=== PATIENT | female | born 2000 | race Caucasian/White ===

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

== ENCOUNTER 2019-03-26 16:40 | Outpatient (CLI) | payer MEDICAID ==
[2019-03-26 18:22] LABS: APPEARANCE,URINE CLEAR; BILIRUBIN,URINE NEGATIVE (NEGATIVE); COLOR,URINE YELLOW; GLUCOSE, URINE NEGATIVE (NEGATIVE); KETONES,URINE NEGATIVE (NEGATIVE); LEUKOCYTE ESTERASE,URINE NEGATIVE (NEGATIVE); NITRITE,URINE NEGATIVE (NEGATIVE); PROTEIN,URINE NEGATIVE (NEGATIVE); URINE SPECIFIC GRAVITY 1.011; UROBILINOGEN,URINE NEGATIVE mg/dL (<2.0)
[2019-03-26 18:37] LABS: URINE AMPHETAMINES SCREEN NEGATIVE; URINE BARBITURATES SCREEN NEGATIVE; URINE BENZODIAZEPINES SCREEN NEGATIVE; URINE COCAINE SCREEN NEGATIVE; URINE MARIJUANA (THC) SCREEN NEGATIVE; URINE METHADONE SCREEN NEGATIVE; URINE PHENCYCLIDINE SCREEN NEGATIVE
== END 2019-03-26 18:48 | disposition home or self-care (01) ==
LOC: LC 16:40
PROVIDERS: ATTEND Obstetrics & Gynecology
PROC: 4A1HXCZ Monitoring of Products of Conception, Cardiac Rate, External Approach (ICD-10-PCS; principal; 2019-03-26)
DX: O23.43 Unspecified infection of urinary tract in pregnancy, third trimester (principal); Z3A.29 29 weeks gestation of pregnancy
CPT/HCPCS: 80307; 81001; 84112

== ENCOUNTER 2019-03-29 22:08 | Outpatient (CLI) | payer MEDICAID ==
[2019-03-29 22:50] LABS: APPEARANCE,URINE CLEAR; BILIRUBIN,URINE NEGATIVE (NEGATIVE); COLOR,URINE YELLOW; GLUCOSE, URINE NEGATIVE (NEGATIVE); KETONES,URINE NEGATIVE (NEGATIVE); LEUKOCYTE ESTERASE,URINE TRACE (NEGATIVE); NITRITE,URINE NEGATIVE (NEGATIVE); PROTEIN,URINE NEGATIVE (NEGATIVE); URINE SPECIFIC GRAVITY 1.009
[2019-03-29 23:16] LABS: URINE AMPHETAMINES SCREEN NEGATIVE; URINE BARBITURATES SCREEN NEGATIVE; URINE BENZODIAZEPINES SCREEN NEGATIVE; URINE COCAINE SCREEN NEGATIVE; URINE MARIJUANA (THC) SCREEN NEGATIVE; URINE METHADONE SCREEN NEGATIVE; URINE PHENCYCLIDINE SCREEN NEGATIVE
== END 2019-03-29 23:28 | disposition home or self-care (01) ==
LOC: LC 22:08
PROVIDERS: ATTEND Obstetrics & Gynecology
PROC: 4A1HXCZ Monitoring of Products of Conception, Cardiac Rate, External Approach (ICD-10-PCS; principal; 2019-03-29)
DX: O36.8130 Decreased fetal movements, third trimester, not applicable or unspecified (principal); Z3A.29 29 weeks gestation of pregnancy
CPT/HCPCS: 80307; 81001

== ENCOUNTER 2019-04-12 19:14 | Outpatient (CLI) | payer MEDICAID ==
[2019-04-12 20:29] LABS: APPEARANCE,URINE CLEAR; BILIRUBIN,URINE NEGATIVE (NEGATIVE); COLOR,URINE STRAW; GLUCOSE, URINE NEGATIVE (NEGATIVE); KETONES,URINE NEGATIVE (NEGATIVE); LEUKOCYTE ESTERASE,URINE NEGATIVE (NEGATIVE); NITRITE,URINE NEGATIVE (NEGATIVE); PROTEIN,URINE NEGATIVE (NEGATIVE); URINE SPECIFIC GRAVITY 1.004; UROBILINOGEN,URINE NEGATIVE mg/dL (<2.0)
[2019-04-12 20:46] LABS: URINE AMPHETAMINES SCREEN NEGATIVE; URINE BARBITURATES SCREEN NEGATIVE; URINE BENZODIAZEPINES SCREEN NEGATIVE; URINE COCAINE SCREEN NEGATIVE; URINE MARIJUANA (THC) SCREEN NEGATIVE; URINE METHADONE SCREEN NEGATIVE; URINE PHENCYCLIDINE SCREEN NEGATIVE
== END 2019-04-12 21:03 | disposition home or self-care (01) ==
LOC: LC 19:14
PROVIDERS: ATTEND Obstetrics & Gynecology Gynecology
PROC: 4A1HXCZ Monitoring of Products of Conception, Cardiac Rate, External Approach (ICD-10-PCS; principal; 2019-04-12)
DX: O47.03 False labor before 37 completed weeks of gestation, third trimester (principal); O46.93 Antepartum hemorrhage, unspecified, third trimester; Z3A.31 31 weeks gestation of pregnancy
CPT/HCPCS: 80307; 81001

== ENCOUNTER 2019-04-29 19:27 | Outpatient (CLI) | payer MEDICAID ==
[2019-04-29 20:07] LABS: BACTERIA (WET MOUNT) 4+ BACTERIA SEEN; EPITHELIALS (WET MOUNT) 4+ EPITHELIALS SEEN; RBCS (WET MOUNT) 1+ RBCS SEEN; T.VAGINALIS (WET MOUNT) NO TRICHOMONAS SEEN; WBCS (WET MOUNT) 1+ WBCS SEEN; YEAST (WET MOUNT) YEAST SEEN
[2019-04-29 20:18] LABS: APPEARANCE,URINE CLEAR; BILIRUBIN,URINE NEGATIVE (NEGATIVE); COLOR,URINE STRAW; GLUCOSE, URINE NEGATIVE (NEGATIVE); KETONES,URINE NEGATIVE (NEGATIVE); LEUKOCYTE ESTERASE,URINE NEGATIVE (NEGATIVE); NITRITE,URINE NEGATIVE (NEGATIVE); PROTEIN,URINE NEGATIVE (NEGATIVE); URINE SPECIFIC GRAVITY 1.002; UROBILINOGEN,URINE NEGATIVE mg/dL (<2.0)
[2019-04-29 20:29] LABS: URINE AMPHETAMINES SCREEN NEGATIVE; URINE BARBITURATES SCREEN NEGATIVE; URINE BENZODIAZEPINES SCREEN NEGATIVE; URINE COCAINE SCREEN NEGATIVE; URINE MARIJUANA (THC) SCREEN NEGATIVE; URINE METHADONE SCREEN NEGATIVE; URINE PHENCYCLIDINE SCREEN NEGATIVE
--- NOTE | 2019-04-29 20:39 | Non Stress Test Report ---
Non Stress Test Datetime Report Generated by CPN: 04/29/2019 20:38 DEMOGRAPHIC EGA NST: 33.6 INDICATION Indication for Study (NST) Other: labor check URINE RESULTS Urine Protein, NST: Negative Urine Ketones - NST: Negative Urine Glucose - NST: Negative Urine Blood - NST: Negative MONITORING Monitor Explained: Monitor Explained; Test Explained; Patient Verbalized Understanding Time on Monitor: 04/29/2019 20:11 Time off Monitor: 04/29/2019 20:38 NST Duration: 27 NST INTERVENTIONS NST Interventions: PO Hydration; Reposition Patient Physician Notified NST: Dr Bartholomew BABY A: [id number] BABY A Movement : Present Contraction Frequency : irr FHR Baseline : 145 Accelerations : 15X15 Decelerations : None Variability : Moderate 6-25bpm NST Review: Meets Criteria for Reactive NST NST Review and Verified By : adore VIZCAINO Results: Reactive NST REPORT Report Trigger: Send Report
[2019-04-29] MEDS ORDERED: FLUCONAZOLE 100 MG TABLET ONE (20:55)
[2019-04-29] MEDS ORDERED: FLUCONAZOLE 100 MG TABLET PO ONE (21:30)
[2019-04-29 22:46] LABS: CHLAM PCR NOT DETECTED (NOT DETECT)
== END 2019-04-29 21:31 | disposition home or self-care (01) ==
LOC: LC 19:27
PROVIDERS: ATTEND Student in an Organized Health Care Education/Training Program
PROC: 4A1HXCZ Monitoring of Products of Conception, Cardiac Rate, External Approach (ICD-10-PCS; principal; 2019-04-29)
DX: O98.813 Other maternal infectious and parasitic diseases complicating pregnancy, third trimester (principal); B37.9 Candidiasis, unspecified; Z3A.33 33 weeks gestation of pregnancy
CPT/HCPCS: 59025; 87210; 81001; 80307; 87491; 87591; J3490

== ENCOUNTER 2019-05-02 10:15 | Outpatient (CLI) | payer MEDICAID ==
[2019-05-02 12:36] LABS: APPEARANCE,URINE SLIGHTLY-CLOUDY; BILIRUBIN,URINE NEGATIVE (NEGATIVE); COLOR,URINE YELLOW; GLUCOSE, URINE NEGATIVE (NEGATIVE); KETONES,URINE NEGATIVE (NEGATIVE); LEUKOCYTE ESTERASE,URINE TRACE (NEGATIVE); NITRITE,URINE NEGATIVE (NEGATIVE); PROTEIN,URINE NEGATIVE (NEGATIVE); URINE SPECIFIC GRAVITY 1.015; UROBILINOGEN,URINE NEGATIVE mg/dL (<2.0)
--- NOTE | 2019-05-02 12:54 | Non Stress Test Report ---
Non Stress Test Datetime Report Generated by CPN: 05/02/2019 12:54 DEMOGRAPHIC EGA NST: 34.2 INDICATION Indication for Study (NST) Other: vaginal bleeding MONITORING Monitor Explained: Monitor Explained; Test Explained; Patient Verbalized Understanding Time on Monitor: 05/02/2019 10:20 Time off Monitor: 05/02/2019 12:53 NST Duration: 153 NST INTERVENTIONS NST Interventions: PO Hydration Physician Notified NST: Frandy Mccormack CN on unit, reviewed fht BABY A: [id number] BABY A Movement : Present Contraction Frequency : 0 FHR Baseline : 135 Accelerations : 15X15 Decelerations : None Variability : Moderate 6-25bpm NST Review: Meets Criteria for Reactive NST NST Review and Verified By : Jer Gonzalez RN NST Results: Reactive NST REPORT Report Trigger: Send Report
[2019-05-02 12:58] LABS: URINE AMPHETAMINES SCREEN NEGATIVE; URINE BARBITURATES SCREEN NEGATIVE; URINE BENZODIAZEPINES SCREEN NEGATIVE; URINE COCAINE SCREEN NEGATIVE; URINE MARIJUANA (THC) SCREEN NEGATIVE; URINE METHADONE SCREEN NEGATIVE; URINE PHENCYCLIDINE SCREEN NEGATIVE
== END 2019-05-02 12:56 | disposition home or self-care (01) ==
LOC: LC 10:15
PROVIDERS: ATTEND Obstetrics & Gynecology
PROC: 4A1HXCZ Monitoring of Products of Conception, Cardiac Rate, External Approach (ICD-10-PCS; principal; 2019-05-02)
DX: O46.93 Antepartum hemorrhage, unspecified, third trimester (principal); Z3A.34 34 weeks gestation of pregnancy
CPT/HCPCS: 59025; 80307; 81001; 87086

== ENCOUNTER 2019-05-30 19:56 | Outpatient (CLI) | payer MEDICAID ==
[2019-05-30 20:44] LABS: APPEARANCE,URINE SLIGHTLY-CLOUDY; BILIRUBIN,URINE NEGATIVE (NEGATIVE); COLOR,URINE YELLOW; GLUCOSE, URINE NEGATIVE (NEGATIVE); KETONES,URINE NEGATIVE (NEGATIVE); LEUKOCYTE ESTERASE,URINE SMALL (NEGATIVE); NITRITE,URINE NEGATIVE (NEGATIVE); PROTEIN,URINE NEGATIVE (NEGATIVE); URINE SPECIFIC GRAVITY 1.013; UROBILINOGEN,URINE NEGATIVE mg/dL (<2.0)
--- NOTE | 2019-05-30 20:57 | Non Stress Test Report ---
Non Stress Test Datetime Report Generated by CPN: 05/30/2019 20:56 DEMOGRAPHIC EGA NST: 38.2 INDICATION Indication for Study (NST) Other: LC- contractions URINE RESULTS Urine Glucose - NST: Negative MONITORING Monitor Explained: Monitor Explained; Test Explained; Patient Verbalized Understanding Time on Monitor: 05/30/2019 20:09 Time off Monitor: 05/30/2019 20:52 NST Duration: 43 NST INTERVENTIONS NST Interventions: PO Hydration; Reposition Patient Physician Notified NST: Dr. Prado BABY A: [id number] BABY A Movement : Present Contraction Frequency : 2-3 Accelerations : 15X15 Decelerations : None Variability : Moderate 6-25bpm NST Review: Meets Criteria for Reactive NST NST Review and Verified By : , RN NST REPORT Report Trigger: Send Report
[2019-05-30 21:03] LABS: URINE AMPHETAMINES SCREEN NEGATIVE; URINE BARBITURATES SCREEN NEGATIVE; URINE BENZODIAZEPINES SCREEN NEGATIVE; URINE COCAINE SCREEN NEGATIVE; URINE MARIJUANA (THC) SCREEN NEGATIVE; URINE METHADONE SCREEN NEGATIVE; URINE PHENCYCLIDINE SCREEN NEGATIVE
== END 2019-05-30 20:59 | disposition home or self-care (01) ==
LOC: LC 19:56
PROVIDERS: ATTEND Obstetrics & Gynecology
PROC: 4A1HXCZ Monitoring of Products of Conception, Cardiac Rate, External Approach (ICD-10-PCS; principal; 2019-05-30)
DX: O47.1 False labor at or after 37 completed weeks of gestation (principal); Z3A.38 38 weeks gestation of pregnancy
CPT/HCPCS: 80307; 81005

== ENCOUNTER 2019-06-06 16:59 | Outpatient (CLI) | payer MEDICAID ==
[2019-06-06] MEDS ORDERED: HYDROXYZINE PAMOATE 50 MG CAPSULE PO ONE (17:53)
[2019-06-06 17:54] LABS: APPEARANCE,URINE CLEAR; BILIRUBIN,URINE NEGATIVE (NEGATIVE); COLOR,URINE STRAW; GLUCOSE, URINE NEGATIVE (NEGATIVE); KETONES,URINE NEGATIVE (NEGATIVE); LEUKOCYTE ESTERASE,URINE NEGATIVE (NEGATIVE); NITRITE,URINE NEGATIVE (NEGATIVE); PROTEIN,URINE NEGATIVE (NEGATIVE); URINE SPECIFIC GRAVITY 1.002; UROBILINOGEN,URINE NEGATIVE mg/dL (<2.0)
[2019-06-06] MEDS ORDERED: HYDROXYZINE PAMOATE 50 MG CAPSULE ONE (18:05)
[2019-06-06 18:16] LABS: URINE AMPHETAMINES SCREEN NEGATIVE; URINE BARBITURATES SCREEN NEGATIVE; URINE BENZODIAZEPINES SCREEN NEGATIVE; URINE COCAINE SCREEN NEGATIVE; URINE MARIJUANA (THC) SCREEN NEGATIVE; URINE METHADONE SCREEN NEGATIVE; URINE PHENCYCLIDINE SCREEN NEGATIVE
--- NOTE | 2019-06-06 18:52 | Non Stress Test Report ---
Non Stress Test Datetime Report Generated by CPN: 06/06/2019 18:52 DEMOGRAPHIC EGA NST: 39.2 INDICATION Indication for Study (NST) Other: LC- ctxs MONITORING Monitor Explained: Monitor Explained; Test Explained; Patient Verbalized Understanding Time on Monitor: 06/06/2019 17:13 Time off Monitor: 06/06/2019 18:09 NST Duration: 56 NST INTERVENTIONS NST Interventions: PO Hydration Physician Notified NST: Dr Wally BABY A: [id number] BABY A Movement : Present Contraction Frequency : 2-4 FHR Baseline : 140 Accelerations : 15X15 Decelerations : None Variability : Moderate 6-25bpm NST Review: Meets Criteria for Reactive NST NST Review and Verified By : Joyce Lane RN NST Results: Reactive NST REPORT Report Trigger: Send Report
== END 2019-06-06 19:43 | disposition home or self-care (01) ==
LOC: LC 16:59
PROVIDERS: ATTEND Obstetrics & Gynecology
PROC: 4A1HXCZ Monitoring of Products of Conception, Cardiac Rate, External Approach (ICD-10-PCS; principal; 2019-06-06)
DX: O36.8130 Decreased fetal movements, third trimester, not applicable or unspecified (principal); O47.1 False labor at or after 37 completed weeks of gestation; Z3A.39 39 weeks gestation of pregnancy
CPT/HCPCS: 59025; 81005; 80307; J3490

== ENCOUNTER 2019-06-12 10:57 | Outpatient (CLI) | payer MEDICAID ==
[2019-06-12 11:24] LABS: APPEARANCE,URINE CLOUDY; BILIRUBIN,URINE NEGATIVE (NEGATIVE); COLOR,URINE YELLOW; GLUCOSE, URINE NEGATIVE (NEGATIVE); KETONES,URINE NEGATIVE (NEGATIVE); LEUKOCYTE ESTERASE,URINE LARGE (NEGATIVE); NITRITE,URINE NEGATIVE (NEGATIVE); PROTEIN,URINE 30 mg/dL (NEGATIVE); URINE SPECIFIC GRAVITY 1.016; UROBILINOGEN,URINE NEGATIVE mg/dL (<2.0)
--- NOTE | 2019-06-12 11:53 | Non Stress Test Report ---
Non Stress Test Datetime Report Generated by CPN: 06/12/2019 11:52 DEMOGRAPHIC EGA NST: 40.1 INDICATION Indication for Study (NST) Other: false labor VITAL SIGNS Temperature - NST: 98.6 RESP - NST: 16 NBPSYS NST: 100 NBPDIA NST: 56 MONITORING Monitor Explained: Monitor Explained; Test Explained Time on Monitor: 06/12/2019 11:13 Time off Monitor: 06/12/2019 11:49 NST Duration: 36 NST INTERVENTIONS NST Interventions: PO Hydration; Reposition Patient Physician Notified NST: A. Escobar CNM on unit reviewed fht BABY A: [id number] BABY A Movement : Present Contraction Frequency : x2 FHR Baseline : 145 Accelerations : 15X15 Decelerations : None Variability : Moderate 6-25bpm NST Review: Meets Criteria for Reactive NST NST Review and Verified By : MMobley NST Results: Reactive NST REPORT Report Trigger: Send Report
[2019-06-12 11:55] LABS: URINE AMPHETAMINES SCREEN NEGATIVE; URINE BARBITURATES SCREEN NEGATIVE; URINE BENZODIAZEPINES SCREEN NEGATIVE; URINE COCAINE SCREEN NEGATIVE; URINE MARIJUANA (THC) SCREEN NEGATIVE; URINE METHADONE SCREEN NEGATIVE; URINE PHENCYCLIDINE SCREEN NEGATIVE
[2019-06-12] MEDS ORDERED: RINGERS SOLUTION,LACTATED 1,000 ML IV PRN (18:59)
== END 2019-06-12 12:05 | disposition home or self-care (01) ==
LOC: LC 10:57
PROVIDERS: ATTEND Obstetrics & Gynecology
PROC: 4A1HXCZ Monitoring of Products of Conception, Cardiac Rate, External Approach (ICD-10-PCS; principal; 2019-06-12)
DX: O47.1 False labor at or after 37 completed weeks of gestation (principal); Z3A.40 40 weeks gestation of pregnancy
CPT/HCPCS: 59025; 87086; 81005; 87088; 80307; 84112; Q0114

== ENCOUNTER 2019-06-12 18:14 | Inpatient (IN) | payer MEDICAID ==
[2019-06-12] MEDS ORDERED: ACETAMINOPHEN 325 MG TABLET PO PRN (18:37)
[2019-06-12] MEDS ORDERED: DINOPROSTONE 10 MG VAGINAL INSERT.SR PV ONE (18:37)
[2019-06-12] MEDS ORDERED: RINGERS SOLUTION,LACTATED 300 ML IV ONE (18:37)
[2019-06-12] MEDS ORDERED: ZOLPIDEM TARTRATE 5 MG TABLET PO PRN (18:37)
[2019-06-12] MEDS ORDERED: MAG HYDROX/AL HYDROX/SIMETH SUSP 30 ML UDCUP PO PRN (18:37)
[2019-06-12 19:02] LABS: ABSOLUTE MONOCYTES (AUTO) 0.6 10^3/uL (0.1-1.4); ABSOLUTE NEUT (AUTO) 6.5 10^3/uL (1.7-8.2); BASOPHILS % (AUTO) 0.2 % (0-2); EOSINOPHILS % (AUTO) 0.5 % (0-6); HEMATOCRIT 35.5 % (36.0-47.0); HEMOGLOBIN 11.9 g/dL (12.0-15.5); LYMPHOCYTES % (AUTO) 21.6 % (13-45); MEAN CORPUSCULAR HEMOGLOBIN 28.7 pg (27.0-33.4); MEAN CORPUSCULAR HGB CONC 33.6 g/dL (32.0-36.0); MEAN CORPUSCULAR VOLUME 85 fl (80-97); MONOCYTES % (AUTO) 6.9 % (3-13); PLATELET COUNT 194 10^3/uL (150-450); RED BLOOD COUNT 4.15 10^6/uL (3.72-5.28); RED CELL DISTRIBUTION WIDTH 13.7 % (11.5-14.0); SEGMENTED NEUTROPHILS % (AUTO) 70.8 % (42-78); TOTAL CELLS COUNTED % (AUTO) 100 %; WHITE BLOOD COUNT 9.2 10^3/uL (4.0-10.5)
[2019-06-12] MEDS ORDERED: LIDOCAINE 1% INJ-PF (10 MG/ML) 30 ML SDV ONE (19:42)
[2019-06-12] MEDS ORDERED: DINOPROSTONE 10 MG VAGINAL INSERT.SR ONE (19:42)
[2019-06-12] MEDS ORDERED: OXYTOCIN/NORMAL SALINE 20 UNIT/1,000 ML RTUINJ ONE (19:42)
[2019-06-12] MEDS ORDERED: MISOPROSTOL 0.2 MG TABLET ONE (19:42)
[2019-06-12] MEDS ORDERED: OXYTOCIN 10 UNIT/ML VIAL ONE (19:42)
[2019-06-12 20:07] LABS: APPEARANCE,URINE SLIGHTLY-CLOUDY; BILIRUBIN,URINE NEGATIVE (NEGATIVE); COLOR,URINE YELLOW; GLUCOSE, URINE NEGATIVE (NEGATIVE); KETONES,URINE NEGATIVE (NEGATIVE); LEUKOCYTE ESTERASE,URINE TRACE (NEGATIVE); NITRITE,URINE NEGATIVE (NEGATIVE); PROTEIN,URINE NEGATIVE (NEGATIVE); URINE SPECIFIC GRAVITY 1.015; UROBILINOGEN,URINE NEGATIVE mg/dL (<2.0)
[2019-06-12 20:21] LABS: URINE AMPHETAMINES SCREEN NEGATIVE; URINE BARBITURATES SCREEN NEGATIVE; URINE BENZODIAZEPINES SCREEN NEGATIVE; URINE COCAINE SCREEN NEGATIVE; URINE MARIJUANA (THC) SCREEN NEGATIVE; URINE METHADONE SCREEN NEGATIVE; URINE PHENCYCLIDINE SCREEN NEGATIVE
--- NOTE | 2019-06-12 22:15 | Admission Physical ---
Datetime Report Generated by CPN: 06/12/2019 22:14 CURRENT ADMISSION Chief Complaint: Scheduled Induction of Labor Indication for Induction: Post Dates Admit Impression : Postterm, Intrauterine Admit Plan: Admit to Unit; Initiate Labor Induction Protocol ALLERGIES Medication Allergies: Yes Medication Allergies: Sulfa (Sulfonamide Antibiotics)/IA (05/30/2019); prednisone (05/30/2019) Latex: No Latex Allergies Food Allergies: NKA Environmental Allergies: NKA OBSTETRICAL HISTORY EDC: 06/11/2019 00:00 : 1 Para: 0 Term: 0 : 0 SAB: 0 IAB: 0 Ectopic: 0 Livin Cesareans: 0 VBACs: 0 Multiple Births: 0 Gestational Diabetes: No Rh Sensitization: No Incompetent Cervix: No ADRIAN: No Infertility: No ART Treatment: No Uterine Anomaly: No IUGR: No Hx Previous C/S: No Macrosomia: No Hx Loss/Stillborn: No PIH: No Hx : No Placenta Previa/Abruption: No Depression/PP Depression: No PTL/PROM: No Post Hemorrhage: No Current Procedures: Ultrasound; NST Obstetrical History Comments: G1- current SEE RECORDS Alcohol: No Marijuana : No Cocaine: No Other Illicit Drugs: No Cigarettes: Never Smoker. [id number] MEDICAL HISTORY Diabetes: No Blood Transfusion: No Pulmonary Disease (Asthma, TB): No Breast Disease: No Hypertension: No Manager Story Surgery: No Heart Disease: No Hosp/Surgery: Yes Autoimmune Disorder: No Anesthetic Complications: No Kidney Disease: No Abnormal Pap Smear: No Neuro/Epilepsy: No Psychiatric Disorders: No Other Medical Diseases: No Hepatitis/Liver Disease: No Significant Family History: No Varicosities/Phlebitis: No Trauma/Violence : No Thyroid Dysfunction: No Medical History Comments: syncopal episodes- cleared by cards gallbladder surgery-2011 INFECTIOUS HISTORY Gonorrhea: No Genital Herpes: No Chlamydia: No Tuberculosis: No Syphilis: No Hepatitis: No HIV/AIDS Exposure: No Rash or Viral Illness: No HPV: No PHYSICAL EXAM General: Normal HEENT: Normal Neurologic: Normal Thyroid: Normal Heart: Normal Lungs: Normal Breast: Normal Back: Normal Abdomen: Normal Genitourinary Exam: Normal Extremities: Normal DTRs: Normal Pelvic Type: Adequate Vital Signs: Reviewed; Within Normal Limits VAGINAL EXAM Dilatation: 1 Effacement: 75 Station: -3 Contraction Comments: No regular MEMBRANES Pooling: Negative Membranes: Intact FETUS A EGA: 40.1 Monitoring: External US FHR- Baseline: 140 Variability: Moderate 6-25bpm Accelerations: 15X15 Decelerations: None FHR Category: Category I Presentation: Vertex Admit Comment: G1 at 40.1 wks EGA for IOL, scheduled, d/t post dates -Admit to LDR -NPO and IVFs -CEFM and toco -GBS negative -Cervidil at 1999 -Cervix -Routine IOL orders. -Plans epidural for pain management once in active labor PLANS FOR LABOR AND DELIVERY Labor and Delivery: None Pain Management: Epidural Feeding Preference: Breast Benefit of Breast Feed Discussed: Yes Circumcision: No INFORMED CONSENT Informed Consent Obtained: Vaginal Delivery; Section Delivery; Induction of Labor; Risks, Benefits and Alternatives Discussed Signature: with User ID: David : with User ID: David
[2019-06-12] MEDS: RINGERS SOLUTION,LACTATED 1,000 ML IV PRN (22:29)
[2019-06-13] MEDS: RINGERS SOLUTION,LACTATED 1,000 ML IV PRN ×2 (06:25→18:45)
[2019-06-13] MEDS ORDERED: OXYTOCIN/NORMAL SALINE 20 UNIT/1,000 ML RTUINJ IV PRN (10:30)
[2019-06-13] MEDS ORDERED: EPHEDRINE SULFATE INJ 50 MG/1 ML AMPULE ONE (12:49)
[2019-06-13] MEDS ORDERED: FENTANYL/BUPIVACAINE/NS/PF 300 MCG/150 ML RTUINJ EPI ONE (12:50)
[2019-06-13] MEDS ORDERED: BUPIVACAINE HCL 0.25 % INJ/PF (2.5 MG/1 ML) 30 ML VIAL ONE (12:50)
--- NOTE | 2019-06-13 14:10 | Warning Signs in Babies ---
VOD Warning Signs Datetime Report Generated by [facility]: 06/13/2019 14:10 VOD#[id number] -Warning Signs in Babies: Viewed with Parent(s)/Family (06/13/2019 14:09:Balwinder De Jesus RN)
[2019-06-13] MEDS ORDERED: INFLUENZA QUAD (6MOS+) 2019-20 VAC 0.5 ML SYR IM ONE (14:13)
[2019-06-13] MEDS ORDERED: ACETAMINOPHEN 325 MG TABLET PO ONE (19:52)
[2019-06-13] MEDS ORDERED: GENTAMICIN SULFATE INJ 80 MG/2 ML VIAL IV ONE (19:55)
[2019-06-13] MEDS ORDERED: ACETAMINOPHEN 325 MG TABLET ONE (19:58)
[2019-06-13] MEDS ORDERED: LIDOCAINE 2% INJ-PF (20 MG/ML) 10 ML AMPUL ONE (21:02)
[2019-06-13] MEDS: AMPICILLIN SODIUM 2 GM in NORMAL SALINE 100 ML IV SCH (21:12)
[2019-06-13] MEDS ORDERED: GENTAMICIN SULFATE IV ONE (22:00)
[2019-06-13] MEDS ORDERED: GENTAMICIN SULFATE INJ 80 MG/2 ML VIAL IV SCH (22:00)
[2019-06-13] MEDS ORDERED: DEXTROSE 5% IV ONE (22:00)
[2019-06-13] MEDS ORDERED: WATER IV ONE (22:00)
[2019-06-14] MEDS ORDERED: IBUPROFEN 800 MG TABLET ONE ×2 (00:18→05:45)
[2019-06-14] MEDS ORDERED: PROMETHAZINE HCL 25 MG TABLET PO PRN (00:28)
[2019-06-14] MEDS ORDERED: BENZOCAINE/MENTHOL AEROSOL SPRAY 56 ML TOP PRN (00:28)
[2019-06-14] MEDS ORDERED: ACETAMINOPHEN WITH CODEINE #3 TABLET PO PRN ×2 (00:28)
[2019-06-14] MEDS ORDERED: MAGNESIUM HYDROXIDE SUSP 30 ML UDCUP PO PRN (00:28)
[2019-06-14] MEDS ORDERED: DIPH/PERTUSS(ACELL)/TETANUS VAC/PF 0.5 ML SYR (>=10YO) IM PRN (00:28)
[2019-06-14] MEDS ORDERED: NA PHOS,M-B/NA PHOS,DI-BA (ADULT) 133 ML ENEMA PR PRN (00:28)
[2019-06-14] MEDS ORDERED: ACETAMINOPHEN 325 MG TABLET PO PRN (00:28)
[2019-06-14] MEDS ORDERED: PROMETHAZINE HCL INJ 25 MG/1 ML VIAL IV PRN (00:28)
[2019-06-14] MEDS ORDERED: DIPHENHYDRAMINE HCL 25 MG CAPSULE PO PRN (00:28)
[2019-06-14] MEDS ORDERED: MEASLES,MUMPS&RUBELLA VACC/PF 0.5 ML VIAL SUBCUT PRN (00:28)
[2019-06-14] MEDS ORDERED: PROMETHAZINE HCL 25 MG SUPP.RECT PR PRN (00:28)
[2019-06-14] MEDS ORDERED: PSEUDOEPHEDRINE HCL 30 MG TABLET PO PRN (00:28)
[2019-06-14] MEDS ORDERED: ZOLPIDEM TARTRATE 5 MG TABLET PO PRN (00:28)
[2019-06-14] MEDS ORDERED: OXYTOCIN/NORMAL SALINE 20 UNIT/1,000 ML RTUINJ IV PRN (00:28)
[2019-06-14] MEDS ORDERED: DIBUCAINE 1% OINTMENT 28 GM TP PRN (00:28)
[2019-06-14] MEDS ORDERED: GLYCERIN/WITCH HAZEL LEAF 1 EACH MED..WIPE TP PRN (00:28)
[2019-06-14] MEDS ORDERED: MISOPROSTOL 0.2 MG TABLET PR PRN (00:28)
--- NOTE | 2019-06-14 01:22 | Delivery Summary ---
Del Sum A-C Datetime Report Generated by CPN: 06/14/2019 01:22 DELIVERY PERSONNEL DELIVERY PERSONNEL: [id number] Delivery Doctor:: Elizabeth Bartholomew MD Anesthesiologist:: Lamonte Islas MD Labor and Delivery Nurse:: Misty Khoury RNfiltration plant mechanic Nurse:: Lenka Hanley RN Nursery Nurse:: Emmanuelle Henry RN MSN Ornamental Metal Fabricator Apprentice/CANE PILER: Chula Morris, PHARMACY GENERAL MANAGER MATERNAL INFORMATION Delivery Anesthesia: Epidural Medications After Delivery: Pitocin Bolus-Please Comment; Cytotec 1000mcg Per Rectum/Vagina Meds After Delivery Comment: pitocin 20units/1000ml NS bolus Estimated Blood Loss (ml): 200 Maternal Complications: Maternal Fever Provider Comments: VMI delivered in ROXANNE presenation with nuchal cord. Shoulders and body delivered without difficulty. Cord doubly clamped and cut and infant to maternal abdomen. Placenta delivered spontaneously intact. FF at U. 2nd degree laceration repaired with good hemostasis. Mother and baby stable upon provider leaving the room. LABOR SUMMARY EDC: 06/11/2019 00:00 No. Babies in Womb: 1 Attempted: No Labor Anesthesia: Epidural LABOR INFORMATION Reason for Induction: Post Dates Onset of Labor: 06/13/2019 21:43 Complete Dilatation: 06/13/2019 23:19 Cervical Ripening Agents: Cervidil Oxytocin: Induction Group B Beta Strep: Negative (Annotations: Data stored by CPN on behalf of user) Antibiotics # of Doses: 0 Steroids Given: None Reason Steroids Not Administered: Not Applicable MEMBRANES Membranes Rupture Method: Artificial Rupture of Membranes: 06/13/2019 15:28 Length of Rupture (hr): 8.25 Amniotic Fluid Color: Light Meconium Amniotic Fluid Amount: Moderate Amniotic Fluid Odor: Normal STAGES OF LABOR Stage 1 hr: 1 Stage 1 min: 36 Stage 2 hr: 0 Stage 2 min: 24 Stage 3 hr: 0 Stage 3 min: 2 Total Time in Labor hr: 2 Total Time in Labor min: 2 VAGINAL DELIVERY Episiotomy: None Laceration #1: Perineal Laceration Extension #1: Second Degree Laceration Repair: Yes Laceration Repair Note: 2nd degree repaired with good hemostasis. Sponge Count Correct: Yes Sharps Count Correct: Yes CSECTION DELIVERY Primary Indication: N/A Secondary Indication: N/A CSection Incidence: N/A Labor: N/A Elective: N/A CSection Incision: N/A BABY A INFORMATION Delivery Date/Time: 06/13/2019 23:43 Method of Delivery: Vaginal Nurse Controlled Delivery: No Born in Route : No : N/A Forceps: N/A Vacuum Extraction: N/A Shoulder Dystocia : No PRESENTATION/POSITION BABY A Presentation: Cephalic Cephalic Presentation: Vertex Vertex Position: Left Occipital Anterior Breech Presentation: N/A PLACENTA INFORMATION BABY A Placenta Delivery Time : 06/13/2019 23:45 Placenta Method of Delivery: Spontaneous Placenta Status: Delivered SCORES BABY A Heart Rate 1 min: >100 bpm Resp Effort 1 min: Good Cry Reflex Irritability 1 min: Cough or Sneeze or Pulls Away Muscle Tone 1 min: Active Motion Color 1 min: Blue/Pale Resuscitation Effort 1 min: Tactile Stimulation SCORE 1 MIN: 8 Heart Rate 5 min: >100 bpm Resp Effort 5 min: Good Cry Reflex Irritability 5 min: Cough or Sneeze or Pulls Away Muscle Tone 5 min: Active Motion Color 5 min: Body [place], Extremities Blue Resuscitation Effort 5 min: Tactile Stimulation SCORE 5 MIN: 9 INFANT INFORMATION BABY A Gestational Age at Delivery: 40.2 Gestational Status: Full Term- 39- 40.6 Weeks Infant Outcome : Liveborn Infant Condition : Stable Sex: Male IDENTIFICATION BABY A Verification Date/Time: 06/13/2019 23:56 ID Band Number: [id number] Mother's Name Verified: Yes RN Verifying : CDeshaun Khoury, RN Additional Verifying Personnel: Nathaniel Morris, PHARMACY GENERAL MANAGER WEIGHT/LENGTH BABY A Birthweight (gm): 3247 Infant Weight (lb): 7 Weight (oz): 3 Length (in): 20.00 Infant Length (cm): 50.80 CORD INFORMATION BABY A No. Cord Vessels: 3 Nuchal Cord : Around Neck x1, Tight Cord Blood Taken: Yes-For Storage (Mom's Blood type +) Infant Suction: Mouth; Nose ASSESSMENT BABY A Skin to Skin: Yes Skin to Skin Time (min): 60 BABY B INFORMATION : N/A SIGNATURES Signature: with User ID: [email or web address]
[2019-06-14] MEDS: AMPICILLIN SODIUM 2 GM in NORMAL SALINE 100 ML IV SCH ×4 (03:52→21:41)
[2019-06-14] MEDS: GENTAMICIN SULFATE 110 MG in DEXTROSE 5%-WATER 100 ML IV SCH ×3 (06:38→22:50)
[2019-06-14] MEDS: IBUPROFEN 800 MG TABLET PO SCH ×3 (06:49→21:39)
[2019-06-14] MEDS ORDERED: INFLUENZA QUAD (6MOS+) 2019-20 VAC 0.5 ML SYR IM ONE (09:03)
[2019-06-14] MEDS: PRENATAL VITAMIN W DHA CAPSULE PO SCH (11:04)
[2019-06-14] MEDS: DOCUSATE SODIUM 100 MG CAPSULE PO SCH ×2 (11:04→17:31)
[2019-06-14] MEDS: SENNOSIDES/DOCUSATE 8.6-50 MG 1 EACH TABLET PO SCH (11:04)
[2019-06-14] MEDS: FERROUS SULFATE 325 MG TABLET PO SCH ×2 (11:04→17:31)
[2019-06-14] MEDS: FAMOTIDINE 20 MG TABLET PO SCH ×2 (11:04→21:39)
[2019-06-15] MEDS: IBUPROFEN 800 MG TABLET PO SCH ×2 (05:06→13:36)
[2019-06-15 07:17] LABS: HEMATOCRIT 31.9 % (36.0-47.0); HEMOGLOBIN 10.8 g/dL (12.0-15.5); MEAN CORPUSCULAR HEMOGLOBIN 29.9 pg (27.0-33.4); MEAN CORPUSCULAR HGB CONC 33.9 g/dL (32.0-36.0); MEAN CORPUSCULAR VOLUME 88 fl (80-97); PLATELET COUNT 163 10^3/uL (150-450); RED BLOOD COUNT 3.62 10^6/uL (3.72-5.28); RED CELL DISTRIBUTION WIDTH 14.3 % (11.5-14.0); WHITE BLOOD COUNT 10.4 10^3/uL (4.0-10.5)
[2019-06-15] MEDS: SENNOSIDES/DOCUSATE 8.6-50 MG 1 EACH TABLET PO SCH (09:32)
[2019-06-15] MEDS: DOCUSATE SODIUM 100 MG CAPSULE PO SCH (09:32)
[2019-06-15] MEDS: FERROUS SULFATE 325 MG TABLET PO SCH (09:32)
[2019-06-15] MEDS: PRENATAL VITAMIN W DHA CAPSULE PO SCH (09:32)
[2019-06-15] MEDS: FAMOTIDINE 20 MG TABLET PO SCH (09:33)
--- NOTE | 2019-06-15 09:56 | PDOC DISCHARGE SUMMARY ---
Impression - Admit/DC Date/PCP Admission Date/Primary Care Provider: 06/12/19 22:45 MUNA SANDERS MD Discharge Date: 06/15/19 - PP day #2, pt doing well, denies fever, chils, malaise. s/p Antibiotics for Chorio. Afebrile now. She is . A+, Rubella Immune. - Discharge Diagnosis (1) Chorioamnionitis Is this a current diagnosis for this admission?: Yes (2) Encounter for elective induction of labor Is this a current diagnosis for this admission?: Yes (3) Meconium in amniotic fluid Is this a current diagnosis for this admission?: Yes (4) Normal vaginal delivery Is this a current diagnosis for this admission?: Yes (5) Obstetrical laceration, second degree Is this a current diagnosis for this admission?: Yes - Additional Information Resuscitation Status: Full Code Discharge Diet: As Tolerated, Regular Discharge Activity: Activity As Tolerated, No Lifting Over 10 Pounds, Pelvic Rest Referrals: MUNA SANDERS MD [Primary Care Provider] - Prescriptions: Ibuprofen [Motrin 800 mg Tablet] 800 mg PO Q8 #60 tablet Home Medications: Pnv No.121/Iron/Folic Acid [ Multivitamin Tablet] 1 each PO DAILY 03/26/19 Ibuprofen [Motrin 800 mg Tablet] 800 mg PO Q8 #60 tablet 06/15/19 HPI Reason(s) for Admission: Onset of Labor Procedures: Ultrasound Intrapartum Procedure(s): Spontaneous Vaginal Delivery Complication(s): Laceration-Perineal Laceration-Degree: 2nd Results Laboratory Results: WBC 10.4 10^3/uL (4.0-10.5) 06/15/19 06:41 RBC 3.62 10^6/uL (3.72-5.28) L 06/15/19 06:41 Hgb 10.8 g/dL (12.0-15.5) L 06/15/19 06:41 Hct 31.9 % (36.0-47.0) L 06/15/19 06:41 MCV 88 fl (80-97) 06/15/19 06:41 MCH 29.9 pg (27.0-33.4) 06/15/19 06:41 MCHC 33.9 g/dL (32.0-36.0) 06/15/19 06:41 RDW 14.3 % (11.5-14.0) H 06/15/19 06:41 Plt Count 163 10^3/uL (150-450) 06/15/19 06:41 Lymph % (Auto) 21.6 % (13-45) 06/12/19 18:51 Kimble % (Auto) 6.9 % (3-13) 06/12/19 18:51 Eos % (Auto) 0.5 % (0-6) 06/12/19 18:51 Baso % (Auto) 0.2 % (0-2) 06/12/19 18:51 Absolute Neuts (auto) 6.5 10^3/uL (1.7-8.2) 06/12/19 18:51 Absolute Lymphs (auto) 2.0 10^3/uL (0.5-4.7) 06/12/19 18:51 Absolute Monos (auto) 0.6 10^3/uL (0.1-1.4) 06/12/19 18:51 Absolute Eos (auto) 0.0 10^3/uL (0.0-0.6) 06/12/19 18:51 Absolute Basos (auto) 0.0 10^3/uL (0.0-0.2) 06/12/19 18:51 Seg Neutrophils % 70.8 % (42-78) 06/12/19 18:51 Urine Color YELLOW 06/12/19 19:47 Urine Appearance SLIGHTLY-CLOUDY 06/12/19 19:47 Urine pH 7.0 (5.0-9.0) 06/12/19 19:47 Ur Specific [place] 1.015 06/12/19 19:47 Urine Protein NEGATIVE mg/dL (NEGATIVE) 06/12/19 19:47 Urine Glucose (UA) NEGATIVE mg/dL (NEGATIVE) 06/12/19 19:47 Urine Ketones NEGATIVE mg/dL (NEGATIVE) 06/12/19 19:47 Urine Blood NEGATIVE (NEGATIVE) 06/12/19 19:47 Urine Nitrite NEGATIVE (NEGATIVE) 06/12/19 19:47 Urine Bilirubin NEGATIVE (NEGATIVE) 06/12/19 19:47 Urine Urobilinogen NEGATIVE mg/dL (<2.0) 06/12/19 19:47 Ur Leukocyte Esterase TRACE (NEGATIVE) H 06/12/19 19:47 Urine Ascorbic Acid 20 (NEGATIVE) H 06/12/19 19:47 Urine Opiates Screen NEGATIVE 06/12/19 19:47 Urine Methadone Screen NEGATIVE 06/12/19 19:47 Ur Barbiturates Screen NEGATIVE 06/12/19 19:47 Ur Phencyclidine Scrn NEGATIVE 06/12/19 19:47 Ur Amphetamines Screen NEGATIVE 06/12/19 19:47 U Benzodiazepines Scrn NEGATIVE 06/12/19 19:47 Urine Cocaine Screen NEGATIVE 06/12/19 19:47 U Marijuana (THC) Screen NEGATIVE 06/12/19 19:47 RPR NONREACTIVE (NONREACTIVE) 06/12/19 18:51 Blood Type A POSITIVE 06/12/19 18:51 Antibody Screen NEGATIVE 06/12/19 18:51 Plan Health Concerns: fever precautions reviewed Goals: d/c to home, f/up with [facility] in 4 wks
[2019-06-15 12:46] VITALS: BP 102/54
== END 2019-06-15 14:13 | disposition home or self-care (01) | DRG 805 ==
LOC: UNDOADMIN 18:14 → LR 18:14 → UNDODISIN 21:53 → LR 22:45 → 2S 06-14 08:25
PROVIDERS: ADMIT Obstetrics & Gynecology; ATTEND Obstetrics & Gynecology
PROC: 10E0XZZ Delivery of Products of Conception, External Approach (ICD-10-PCS; principal; 2019-06-13)
PROC: 0KQM0ZZ Repair Perineum Muscle, Open Approach (ICD-10-PCS; 2019-06-13)
PROC: 3E033VJ Introduction of Other Hormone into Peripheral Vein, Percutaneous Approach (ICD-10-PCS; 2019-06-13)
PROC: 10907ZC Drainage of Amniotic Fluid, Therapeutic from Products of Conception, Via Natural or Artificial Opening (ICD-10-PCS; 2019-06-13)
PROC: 3E02340 Introduction of Influenza Vaccine into Muscle, Percutaneous Approach (ICD-10-PCS; 2019-06-14)
DX: O48.0 Post-term pregnancy (principal); O41.1230 Chorioamnionitis, third trimester, not applicable or unspecified; Z37.0 Single live birth; O69.1XX0 Labor and delivery complicated by cord around neck, with compression, not applicable or unspecified; O77.0 Labor and delivery complicated by meconium in amniotic fluid; O71.82 Other specified trauma to perineum and vulva; Z3A.40 40 weeks gestation of pregnancy; Z88.2 Allergy status to sulfonamides; Z88.8 Allergy status to other drugs, medicaments and biological substances
CPT/HCPCS: 36415; 80307; 81005; 85025; 85027; 86592; 86850; 86900; 86901; 88307; 90686; 90715; C1758; J0290; J1580; J2590; J3010; J3490; J7050; J7060